=== PATIENT | female | born 1990 | race Caucasian/White ===

== ENCOUNTER 2017-07-15 13:42 | Outpatient (CLI) | payer MEDICAID ==
[2017-07-15 14:38] VITALS: BP 120/74
[2017-07-15] MEDS ORDERED: LACTATED RINGERS 500 ML IV ONE (14:52)
[2017-07-15] MEDS ORDERED: LACTATED RINGERS 1,000 ML ONE (14:57)
[2017-07-15 15:32] LABS: Bacteria,Urine 1+ /HPF (Negative); Bilirubin,Urine NEG (Negative); Blood,Urine NEG (Negative); Ketones,Urine NEG (Negative); Leukocyte Esterase,Urine MOD (Negative); Mucus,Urine 1+ /HPF; Nitrite,Urine NEG (Negative); Protein,Urine <15 mg/dL mg/dL (Negative); Urobilinogen,Urine < 2.0 mg/dL (<2.0)
[2017-07-15] MEDS ORDERED: VISTARIL PO ONE (16:04)
== END 2017-07-15 16:21 | disposition home or self-care (01) ==
LOC: TRG 13:42
PROVIDERS: ATTEND Obstetrics & Gynecology
DX: O47.03 False labor before 37 completed weeks of gestation, third trimester (principal); Z3A.35 35 weeks gestation of pregnancy
CPT/HCPCS: 59025; 81001; 96360; J7120

== ENCOUNTER 2017-07-26 23:55 | Outpatient (CLI) | payer MEDICAID ==
[2017-07-27 00:39] VITALS: BP 112/67
[2017-07-27] MEDS ORDERED: LACTATED RINGERS 500 ML IV ONE (02:15)
[2017-07-27] MEDS ORDERED: VISTARIL PO ONE (02:16)
== END 2017-07-27 02:42 | disposition home or self-care (01) ==
LOC: TRG 23:55
PROVIDERS: ATTEND Obstetrics & Gynecology
DX: O47.03 False labor before 37 completed weeks of gestation, third trimester (principal); Z3A.36 36 weeks gestation of pregnancy
CPT/HCPCS: 59025; J7120; Q0177

== ENCOUNTER 2017-07-28 15:57 | Outpatient (CLI) | payer MEDICAID ==
[2017-07-28 16:36] VITALS: BP 118/68
[2017-07-28] MEDS ORDERED: LACTATED RINGERS 500 ML IV ONE (17:36)
== END 2017-07-28 18:16 | disposition home or self-care (01) ==
LOC: TRG 15:57
PROVIDERS: ATTEND Obstetrics & Gynecology
DX: O47.03 False labor before 37 completed weeks of gestation, third trimester (principal); Z3A.36 36 weeks gestation of pregnancy
CPT/HCPCS: 59025

== ENCOUNTER 2017-07-30 16:43 | Outpatient (CLI) | payer MEDICAID, OTHER ==
[2017-07-30 17:32] VITALS: BP 134/63
== END 2017-07-30 19:23 | disposition home or self-care (01) ==
LOC: TRG 16:43
PROVIDERS: ATTEND Obstetrics & Gynecology
DX: O47.1 False labor at or after 37 completed weeks of gestation (principal); Z3A.37 37 weeks gestation of pregnancy
CPT/HCPCS: 59025

== ENCOUNTER 2017-07-30 20:53 | Inpatient (IN) | payer MEDICAID ==
--- NOTE | 2017-07-30 22:06 | History and Physical Report ---
History of Present Illness Date of examination: 07/30/17 Chief complaint: Contractions History of present illness: 26yo G 2 P 1 0 0 1 here with c/o contractions q2-3 mins. She also reports vaginal bleeding but denies LOF. She was evaluated at the clinic this AM. Cervical exam 3.5cm/50%/-3. She later presented to triage and was 4.5cm/50%/-2, was asked to ambulate and re-examined an hour later with no cervical change. She was sent home on labor precautions but returned to triage an hour and a half later with c/o worsening ctxs q2-3mins. Cervical exam unchanged at 4.5cm/50 %/-2. I consulted Dr. Gamez about 23-hrs OBS and she recommended Ambien 10mg PO x1 for tharapeutic rest. Her is complicated by mild anemia and positive GBS status. Past History Past Medical History: no pertinent history Past Surgical History: no surgical history Family/Genetic History: diabetes (father), hypertension (father) Social history: , lives with family - Obstetrical History Expected Date of Delivery: 08/20/17 Actual Gestation: 37 Week(s) 0 Day(s) : 2 Para: 1 Hx # Term Pregnancies: 1 Spontaneous Abortions: 0 Induced : 0 Number of Living Children: 0 #1 Gender: Male year: 2[age][birth year] Birthweight: 3.714 kg Method of Delivery: Vaginal Gestational age at delivery: 38 Complications: none Medications and Allergies Allergies Allergy/AdvReac Type Severity Reaction Status Date / Time No Known Allergies Allergy Verified 09/20/15 13:34 Home Medications Medication Instructions Recorded Confirmed Last Taken Type Acetaminophen [Tylenol Extra 1,000 mg PO PRN 07/30/17 07/30/17 07/30/17 09:30 History Strength] Review of Systems All systems: negative - Vital Signs Vital signs: Vital Signs Temp Pulse Resp BP Pulse Ox 98.4 F 110 H 20 135/75 99 07/30/17 21:07 07/30/17 21:07 07/30/17 21:07 07/30/17 21:07 07/30/17 21:07 Temp Pulse Resp BP Pulse Ox 98.4 F 101 H 20 135/75 99 07/30/17 21:07 07/30/17 21:26 07/30/17 21:07 07/30/17 21:11 07/30/17 21:26 - Physical Exam Cardiovascular: Regular rate, Normal S1, Normal S2, No murmurs Lungs: Positive: Clear to auscultation, Normal air movement Abdomen: Positive: normal appearance Genitourinary (Female): Positive: normal external genitalia, normal perenium Vulva: both: normal Vagina: Positive: normal moisture, other (bloody show) Uterus: Positive: normal size, normal contour Extremities: Positive: normal Deep Tendon Reflex Grade: Normal +2 - Obstetrical FHR: category 1 FHR comments: baseline 140, moderate variability, 15x15 accels, no decels Uterine Contraction Monitor Mode: External Cervical Dilatation: 4.5 (per RN) Cervical Effacement Percentage: 50 (per RN) station: -2 Uterine Contraction Frequency (min): 2-3 Uterine Contraction Pattern: Regular Results All other labs normal. Assessment and Plan - Patient Problems (1) 37 weeks gestation of Current Visit: Yes Status: Acute (2) False labor Current Visit: Yes Status: Acute Plan to address problem: Admit to L&D for 23-hrs OBS Intermittent electronic monitoring Ambien 10mg PO x1 for therapeutic rest Admit to inpatient status if active labor Anticipate d/c home in AM if no cervical change (3) Group B streptococcal carriage complicating Current Visit: Yes Status: Acute Plan to address problem: Start Ampicillin for GBS prophylaxis if active labor
[2017-07-30] MEDS ORDERED: AMBIEN PO ONE (22:30)
[2017-07-30] MEDS ORDERED: LACTATED RINGERS 1,000 ML ONE (23:26)
[2017-07-30] MEDS: LACTATED RINGERS 1,000 ML IV SCH (23:31)
[2017-07-31] MEDS ORDERED: MORPHINE IM ONE (01:42)
[2017-07-31] MEDS ORDERED: ePHEDrine SULFATE IV PRN (04:23)
[2017-07-31] MEDS ORDERED: XYLOCAINE 2% INFILTRATI ONE (04:23)
[2017-07-31] MEDS ORDERED: POLYCILLIN/NS 2 GM/100 ML 2 GM/100 ML BAG IV ONE (04:23)
[2017-07-31] MEDS ORDERED: MINERAL OIL PO PRN (04:23)
[2017-07-31] MEDS ORDERED: BRETHINE SUB-Q PRN (04:23)
[2017-07-31] MEDS ORDERED: BRETHINE IVP PRN (04:23)
[2017-07-31] MEDS: SUBLIMAZE IV PRN ×2 (04:33→05:31)
[2017-07-31] MEDS: LACTATED RINGERS 1,000 ML IV SCH (04:35)
--- NOTE | 2017-07-31 04:36 | Progress Note ---
Assessment and Plan - Patient Problems (1) 37 weeks gestation of Current Visit: Yes Status: Acute (2) Group B streptococcal carriage complicating Current Visit: Yes Status: Acute Plan to address problem: Start Ampicillin for GBS prophylaxis (3) Active labor at term Current Visit: Yes Status: Acute Plan to address problem: Admit to inpatient status Start routine labor orders May get an epidural for labor pain management Continuous EFM Anticipate vaginal delivery Subjective - Subjective Date of service: 07/31/17 Principal diagnosis: IUP @ 37 wks; Active Labor Interval history: 26yo G 2 P 1 0 0 1 here with c/o contractions q2-3 mins. She also reports vaginal bleeding but denies LOF. She was evaluated at the clinic this AM. Cervical exam 3.5cm/50%/-3. She later presented to triage and was 4.5cm/50%/-2, was asked to ambulate and re-examined an hour later with no cervical change. She was sent home on labor precautions but returned to triage an hour and a half later with c/o worsening ctxs q2-3mins. Cervical exam unchanged at 4.5cm/50 %/-2. I consulted Dr. Gamez about 23-hrs OBS and she recommended Ambien 10mg PO x1 for tharapeutic rest. Her is complicated by mild anemia and positive GBS status. Patient reports: movement normal, contractions (pain level 10/10), other ( no relief after Ambien 10 mg PO x1 and later Morphine 2mg IM x1 for therapeutic rest) Objective - Vital Signs Vital Signs: Vital Signs - 12hr 07/30/17 07/30/17 07/30/17 21:07 21:11 21:16 Temperature 98.4 F Pulse Rate 110 H 108 H 115 H Respiratory 20 Rate Blood Pressure 135/75 Blood Pressure 135/75 [Left] O2 Sat by Pulse 99 99 99 Oximetry 07/30/17 07/30/17 07/30/17 21:21 21:26 22:44 Temperature Pulse Rate 101 H 101 H 99 H Respiratory Rate Blood Pressure 128/74 Blood Pressure [Left] O2 Sat by Pulse 99 99 Oximetry 07/30/17 07/31/17 07/31/17 23:56 03:49 03:54 Temperature 98.3 F Pulse Rate 107 H 97 H Respiratory Rate Blood Pressure Blood Pressure [Left] O2 Sat by Pulse 98 97 Oximetry 07/31/17 07/31/17 07/31/17 03:56 03:59 04:03 Temperature Pulse Rate 97 H 92 H 110 H Respiratory Rate Blood Pressure Blood Pressure [Left] O2 Sat by Pulse 93 96 93 Oximetry 07/31/17 07/31/17 07/31/17 04:04 04:15 04:18 Temperature 98 F Pulse Rate 111 H 115 H 115 H Respiratory 24 Rate Blood Pressure 111/58 Blood Pressure [Left] O2 Sat by Pulse 98 Oximetry - Exam FHR: auscultation normal, category 1 FHR comments: baseline 135, moderate variability, 15x15 accels, no decels Uterine Contraction Monitor Mode: External Cervical Dilatation: 5 Cervical Effacement Percentage: 80 station: -1 Uterine Contraction Frequency (min): 2-3 Uterine Contraction Pattern: Regular (palpate mild) Extremities: normal Deep Tendon Reflex Grade: Normal +2
[2017-07-31 04:56] LABS: Hematocrit 30.4 % (30.3-42.9); Hemoglobin 9.7 gm/dl (10.1-14.3); Mean Corpuscular HGB Conc 32 % (30-34); Mean Corpuscular Volume 76 fl (79-97); Platelet Count 250 K/mm3 (140-440); Red Blood Count 4.01 M/mm3 (3.65-5.03); Red Cell Distribution Width 16.1 % (13.2-15.2)
[2017-07-31] MEDS ORDERED: PITOCin/NS 20 UNIT/1000ML DRIP 20 UNITS/1,000 ML BAG IV SCH (05:00)
[2017-07-31 05:04] LABS: Mean Corpuscular Hemoglobin 24 pg (28-32)
[2017-07-31] MEDS ORDERED: POLYCILLIN/NS 1 GM/50 ML 1 GM/50 ML BAG IV SCH (06:00)
[2017-07-31] MEDS ORDERED: PHENERGAN PR PRN (06:24)
[2017-07-31] MEDS ORDERED: TUCKS PAD TP PRN (06:24)
[2017-07-31] MEDS ORDERED: MILK OF MAGNESIA PO PRN (06:24)
[2017-07-31] MEDS ORDERED: PHENERGAN PO PRN (06:24)
[2017-07-31] MEDS ORDERED: LANSINOH TP PRN (06:24)
[2017-07-31] MEDS ORDERED: TYLENOL PO PRN (06:24)
[2017-07-31] MEDS ORDERED: BENADRYL PO PRN (06:24)
[2017-07-31] MEDS ORDERED: DULCOLAX PR PRN (06:24)
[2017-07-31] MEDS ORDERED: ZOFRAN IV PRN (06:24)
--- NOTE | 2017-07-31 06:33 | Procedure Note ---
OB Delivery Note - Delivery Date of Delivery: 07/31/17 (at 05:35) Surgeon: CARMEN MEDINA Estimated blood loss: 200cc - Vaginal Delivery presentation: vertex Delivery position: OA Intrapartum events: prolonged latent phase Delivery induction: none Delivery monitor: external FHT, external uterine Route of delivery: (at 05:35) Delivery placenta: spontaneous (at 05:46) Delivery cord: nuchal cord (x1; reduced after delivery of baby), 3 umbilical vessels Episiotomy: none Delivery laceration: 1st degree (vaginal midline), other (bilateral periurethral - hemostatic; not repaired) Delivery repair: vicryl (3-0) Anesthesia: local Delivery comments: of a less vigorous term female at 05:35. NICU team in the room. Baby was immediately placed on maternal abdomen, dried & bulb suctioned. Baby became more vigorous. The umbilical cord was double-clamped and cut. Placenta spontaneously delivered at 05:46. Moderate lochia noted. Fundal massage and IV Pitocin bolus initiated. Fundus F/ML/U-2 with light lochia. 1st degree midline vaginal laceration noted. Was repaired using a 3-0 vicryl needle under local anesthesia. Pt tolerated the procedure well. Bilateral periurethral laceration noted. Hemostatic with pressure so not repaired. Placenta intact. Was discarded. Mom and baby in stable condition. - Infant A at 1 minute: 8 at 5 minutes: 9 Gender: Female (7 lbs 14 oz (3579 gm))
[2017-07-31] MEDS: NORCO 5/325 PO PRN (06:52)
[2017-07-31] MEDS ORDERED: SODIUM CHLORIDE FLUSH SYRINGE 10 ML IV NR (07:00)
[2017-07-31] MEDS: FEOSOL PO SCH (09:51)
[2017-07-31] MEDS: PRENATAL VITAMIN PO SCH (09:51)
[2017-07-31] MEDS: MOTRIN PO SCH ×2 (13:22→18:55)
[2017-07-31 22:07] LABS: Hematocrit 28.5 % (30.3-42.9); Hemoglobin 8.8 gm/dl (10.1-14.3)
[2017-08-01] MEDS: MOTRIN PO SCH ×4 (01:30→23:54)
[2017-08-01] MEDS ORDERED: BOOSTRIX IM ONE (06:00)
--- NOTE | 2017-08-01 10:16 | Progress Note ---
Assessment and Plan A: PP Day #1 Asymptomatic Anemia P: Follow Routine Orders Infed 100mg IM x 1 dose Continue FeSO4 325mg PO BID at home Plans Mirena IUD at 6 weeks D/C home in the AM RTO in 6 Weeks Subjective - Subjective Date of service: 08/01/17 Principal diagnosis: IUP @ 37 wks; Active Labor Patient reports: appetite normal, voiding normally, pain well controlled, flatus , ambulating normally [place]: doing well Objective - Vital Signs Latest vital signs: Vital Signs Temp Pulse Resp BP 08/01/17 07:58 98.5 F 91 H 18 107/65 08/01/17 06:05 18 08/01/17 02:30 18 08/01/17 01:30 18 08/01/17 00:48 98.4 F 83 18 112/59 07/31/17 17:00 97.5 F L 105 H 18 115/59 07/31/17 12:15 99 F 112 H 18 116/55 Intake and Output 07/31/17 08/01/17 08/01/17 22:59 06:59 14:59 Intake Total 360 480 240 Balance 360 480 240 Intake: Oral 120 240 Intake, Free Water 240 480 Other: Total, Intake Amount 120 240 # Voids Void 1 2 1 - Exam Breasts: Present: normal Cardiovascular: Present: Regular rate Lungs: Present: Clear to auscultation, Normal air movement Abdomen: Present: normal appearance, soft, normal bowel sounds Uterus: Present: normal, firm, fundal height below umbilicus Extremities: Present: normal - Labs Labs: Abnormal lab results 07/31/17 Range/Units 21:34 Hgb 8.8 L (10.1-14.3) gm/dl Hct 28.5 L (30.3-42.9) %
--- NOTE | 2017-08-01 10:17 | Discharge Summary ---
Providers - Providers Date of Admission: 07/31/17 06:00 Date of discharge: 08/02/17 Attending physician: MARC PRAKASH MD Primary care physician: MARC PRAKASH MD Hospitalization Reason for admission: active labor Delivery: Episiotomy: none Laceration: 1st degree Other procedures: none complications: none Discharge diagnosis: IUP at term delivered [place] baby: female Condition at discharge: Good Disposition: DC-01 TO HOME OR SELFCARE Plan - Provider Discharge Summary Activity: routine, no sex for 6 weeks, no heavy lifting 4 weeks, no strenuous exercise Diet: routine Instructions: routine Additional instructions: [] Smoking cessation referral if applicable(refer to patient education folder for contact #) [] Refer to [facility] Booklet Call your doctor immediately for: * Fever > 100.5 * Heavy vaginal bleeding ( >1 pad per hour) * Severe persistent headache * Shortness of breath * Reddened, hot, painful area to leg or breast * Drainage or odor from incision. * Keep incision clean and dry at all times and follow doctor's instructions regarding bathing/showering - Follow up plan Follow up: MARC PRAKASH MD [Primary Care Provider] - 6 Weeks
[2017-08-01] MEDS ORDERED: INFED IM NR (11:30)
[2017-08-01] MEDS: PRENATAL VITAMIN PO SCH (14:09)
[2017-08-01] MEDS: FEOSOL PO SCH (14:09)
[2017-08-01] MEDS: NORCO 5/325 PO PRN (17:53)
[2017-08-02] MEDS: MOTRIN PO SCH (06:08)
[2017-08-02 08:32] VITALS: BP 109/77
== END 2017-08-02 08:30 | disposition home or self-care (01) | DRG 775 ==
LOC: TRG 20:53 → LD 21:43 → TRG 07-31 04:25 → LD 07-31 06:00 → OB 07-31 09:07
PROVIDERS: ADMIT Obstetrics & Gynecology; ATTEND Obstetrics & Gynecology
PROC: 10E0XZZ Delivery of Products of Conception, External Approach (ICD-10-PCS; principal; 2017-07-31)
PROC: 0HQ9XZZ Repair Perineum Skin, External Approach (ICD-10-PCS; 2017-07-31)
DX: O99.824 Streptococcus B carrier state complicating childbirth (principal); O70.0 First degree perineal laceration during delivery; O99.02 Anemia complicating childbirth; D64.9 Anemia, unspecified; O47.1 False labor at or after 37 completed weeks of gestation; Z3A.37 37 weeks gestation of pregnancy; Z37.0 Single live birth; Z83.3 Family history of diabetes mellitus; Z82.49 Family history of ischemic heart disease and other diseases of the circulatory system; Z79.899 Other long term (current) drug therapy; O69.81X0 Labor and delivery complicated by cord around neck, without compression, not applicable or unspecified
CPT/HCPCS: 36415; 85014; 85018; 85027; 86592; 86850; 86900; 86901; 90471; 90715; 99211; A6250; G0463; J0290; J1750; J2270; J2590; J3010; J7120

== ENCOUNTER 2019-02-21 13:44 | Emergency (ER) | payer SELFPAY ==
[2019-02-21 14:37] VITALS: BP 128/64
--- NOTE | 2019-02-21 14:38 | Emergency Department Report ---
ED ENT HPI - General Chief complaint: Earache Stated complaint: EAR ACHE/NECK PAIN Time Seen by Provider: 02/21/19 14:35 Source: patient Mode of arrival: Ambulatory Limitations: No Limitations - Related Data Home Medications Medication Instructions Recorded Confirmed Last Taken Acetaminophen [Tylenol Extra 1,000 mg PO PRN 07/30/17 07/30/17 07/30/17 09:30 Strength] Previous Rx's Medication Instructions Recorded Last Taken Type Amoxicillin [Amoxicillin TAB] 875 mg PO BID #20 tablet 02/21/19 Unknown Rx Cyclobenzaprine [Flexeril] 10 mg PO TID PRN #15 tablet 02/21/19 Unknown Rx Allergies Allergy/AdvReac Type Severity Reaction Status Date / Time No Known Allergies Allergy Verified 09/20/15 13:34 ED Dental HPI - General Chief complaint: Earache Stated complaint: EAR ACHE/NECK PAIN Time Seen by Provider: 02/21/19 14:35 Source: patient Mode of arrival: Ambulatory Limitations: No Limitations - Related Data Home Medications Medication Instructions Recorded Confirmed Last Taken Acetaminophen [Tylenol Extra 1,000 mg PO PRN 07/30/17 07/30/17 07/30/17 09:30 Strength] Previous Rx's Medication Instructions Recorded Last Taken Type Amoxicillin [Amoxicillin TAB] 875 mg PO BID #20 tablet 02/21/19 Unknown Rx Cyclobenzaprine [Flexeril] 10 mg PO TID PRN #15 tablet 02/21/19 Unknown Rx Allergies Allergy/AdvReac Type Severity Reaction Status Date / Time No Known Allergies Allergy Verified 09/20/15 13:34 ED Review of Systems ROS: Stated complaint: EAR ACHE/NECK PAIN Other details as noted in HPI ED Past Medical Hx - Past Medical History Hx Hypertension: No Hx Congestive Heart Failure: No Hx Diabetes: No Hx Deep Vein Thrombosis: No Hx Renal Disease: No Hx Sickle Cell Disease: No Hx Headaches / Migraines: Yes Hx Seizures: No Hx Asthma: No Hx COPD: No Hx HIV: No - Surgical History Past Surgical History?: No - Social History Smoking Status: Never Smoker - Medications Home Medications: Home Medications Medication Instructions Recorded Confirmed Last Taken Type Acetaminophen [Tylenol Extra 1,000 mg PO PRN 07/30/17 07/30/17 07/30/17 09:30 History Strength] Amoxicillin [Amoxicillin TAB] 875 mg PO BID #20 tablet 02/21/19 Unknown Rx Cyclobenzaprine [Flexeril] 10 mg PO TID PRN #15 tablet 02/21/19 Unknown Rx ED Physical Exam - General Limitations: No Limitations ED Course Vital Signs 02/21/19 14:33 Temperature 98.1 F Pulse Rate 91 H Respiratory 18 Rate Blood Pressure 128/64 O2 Sat by Pulse 99 Oximetry Critical care attestation.: If time is entered above; I have spent that time in minutes in the direct care of this critically ill patient, excluding procedure time. ED Disposition Clinical Impression: Neck pain, acute Pharyngitis, acute Qualifiers: Pharyngitis/tonsillitis etiology: other specified organisms Qualified Code(s): J02.8 - Acute pharyngitis due to other specified organisms Disposition: DC-01 TO HOME OR SELFCARE Is pt being admited?: No Does the pt Need Aspirin: No Condition: Stable Referrals: ALYSIA MATTHEWS MD [Primary Care Provider] - 3-5 Days
== END 2019-02-21 14:50 | disposition home or self-care (01) ==
LOC: ED 13:44
DX: J02.9 Acute pharyngitis, unspecified (principal); M54.2 Cervicalgia; G43.909 Migraine, unspecified, not intractable, without status migrainosus
CPT/HCPCS: 99282

== ENCOUNTER 2020-10-25 21:55 | Emergency (ER) | payer MEDICAID, OTHER ==
[2020-10-25 22:37] LABS: Basophils # (Auto) 0.1 K/mm3 (0.0-0.1); Basophils % (Auto) 0.5 % (0.0-1.8); Eosinophils # (Auto) 0.5 K/mm3 (0.0-0.4); Eosinophils % (Auto) 4.2 % (0.0-4.3); Hematocrit 36.8 % (30.3-42.9); Hemoglobin 12.5 gm/dl (10.1-14.3); Lymphocytes # (Auto) 3.3 K/mm3 (1.2-5.4); Lymphocytes % (Auto) 30.9 % (13.4-35.0); Mean Corpuscular HGB Conc 34 % (30-34); Mean Corpuscular Volume 81 fl (79-97); Monocytes # (Auto) 0.5 K/mm3 (0.0-0.8); Monocytes % (Auto) 4.6 % (0.0-7.3); Platelet Count 240 K/mm3 (140-440); Red Blood Count 4.55 M/mm3 (3.65-5.03); Red Cell Distribution Width 14.6 % (13.2-15.2)
[2020-10-25 22:42] LABS: Bilirubin,Urine NEG (Negative); Blood,Urine NEG (Negative); Color,Urine Yellow (Yellow); Mucus,Urine FEW /HPF; RBC,Urine < 1.0 /HPF (0.0-6.0)
[2020-10-25 22:55] LABS: INR 1.06 (0.87-1.13)
[2020-10-25 23:00] LABS: Alanine Aminotransferase 22 units/L (7-56); Albumin 3.7 g/dL (3.9-5); Blood Urea Nitrogen 10 mg/dL (7-17); Calcium 8.8 mg/dL (8.4-10.2); Hemolysis Index 1
[2020-10-25 23:02] LABS: BUN/Creatinine Ratio 14; Bilirubin,Direct < 0.2 mg/dL (0-0.2)
--- NOTE | 2020-10-26 02:05 | XRay Report ---
ABDOMEN SUPINE AND ERECT INDICATION / CLINICAL INFORMATION: MAIN. COMPARISON: None available. FINDINGS: Bowel gas pattern is unremarkable, not indicative of obstruction. No gross abnormal mass. Unfortunately, the erect view does not include the dome of the diaphragm, so I cannot entirely exclud e a small amount of free air. There are certainly no evidence of extensive free air. Signer Name: Ralph Perez MD Signed: 10/26/2020 12:03 AM Workstation Name: [id number]
--- NOTE | 2020-10-26 03:45 | Cat Scan Report ---
Exam has been dictated earlier this morning. Signer Name: Ralph Perez MD Signed: 10/26/2020 3:41 AM Workstation Name: [id number]
--- NOTE | 2020-10-26 04:10 | Emergency Department Report ---
ED Abdominal Pain HPI - General Chief Complaint: Abdominal Pain Stated Complaint: RT SIDED ABDOMINAL PAIN Time Seen by Provider: 10/26/20 02:55 Source: patient Mode of arrival: Ambulatory Limitations: No Limitations - History of Present Illness Initial Comments: Patient is a 30-year-old female who presents for right lower quadrant pain times 3 weeks that has worsened over the past 3 days with nausea, pain exacerbated by p.o. intake and palpation. Patient states decreased appetite. Nausea without vomiting at this point. There is been no fever or chills. Patient does endorse history of ovarian cyst, and abdominal pain with constipation in past. Last bowel movement was yesterday. Patient states some pain with bowel movement. Last p.o. intake was yesterday. MD Complaint: abdominal pain - Related Data Home Medications Medication Instructions Recorded Confirmed Last Taken Acetaminophen [Tylenol Extra 1,000 mg PO PRN 07/30/17 07/30/17 07/30/17 09:30 Strength] Previous Rx's Medication Instructions Recorded Last Taken Type Amoxicillin [Amoxicillin TAB] 875 mg PO BID #20 tablet 02/21/19 Unknown Rx Cyclobenzaprine [Flexeril] 10 mg PO TID PRN #15 tablet 02/21/19 Unknown Rx Docusate Sodium [Colace] 100 mg PO BID #30 capsule 10/26/20 Unknown Rx polyethylene glycoL 3350 [Miralax 17 gm PO BID PRN #14 packet 10/26/20 Unknown Rx 3350] Allergies Allergy/AdvReac Type Severity Reaction Status Date / Time No Known Allergies Allergy Verified 09/20/15 13:34 ED Review of Systems ROS: Stated complaint: RT SIDED ABDOMINAL PAIN Other details as noted in HPI Constitutional: denies: chills, fever Eyes: denies: eye pain, eye discharge, vision change ENT: denies: ear pain, throat pain Respiratory: denies: cough, shortness of breath, wheezing Cardiovascular: denies: chest pain, palpitations Endocrine: no symptoms reported Gastrointestinal: abdominal pain (RLQ radiates to left upper quad ), vomiting. denies: nausea, diarrhea Genitourinary: denies: urgency, dysuria, frequency, hematuria, discharge, dyspareunia Musculoskeletal: back pain (left flank pain ) Skin: denies: rash, lesions Neurological: denies: headache, weakness, paresthesias Psychiatric: denies: anxiety, depression Hematological/Lymphatic: denies: easy bleeding, easy bruising ED Past Medical Hx - Past Medical History Previous Medical History?: Yes Hx Hypertension: No Hx Congestive Heart Failure: No Hx Diabetes: No Hx Deep Vein Thrombosis: No Hx Renal Disease: No Hx Sickle Cell Disease: No Hx Headaches / Migraines: Yes Hx Seizures: No Hx Asthma: No Hx COPD: No Hx HIV: No - Surgical History Past Surgical History?: No - Social History Smoking Status: Never Smoker - Medications Home Medications: Home Medications Medication Instructions Recorded Confirmed Last Taken Type Acetaminophen [Tylenol Extra 1,000 mg PO PRN 07/30/17 07/30/17 07/30/17 09:30 History Strength] Amoxicillin [Amoxicillin TAB] 875 mg PO BID #20 tablet 02/21/19 Unknown Rx Cyclobenzaprine [Flexeril] 10 mg PO TID PRN #15 tablet 02/21/19 Unknown Rx Docusate Sodium [Colace] 100 mg PO BID #30 capsule 10/26/20 Unknown Rx polyethylene glycoL 3350 [Miralax 17 gm PO BID PRN #14 packet 10/26/20 Unknown Rx 3350] ED Physical Exam - General Limitations: No Limitations General appearance: alert, in no apparent distress - Head Head exam: Present: atraumatic, normocephalic - Eye Eye exam: Present: normal appearance, EOMI Pupils: Present: normal accommodation - ENT ENT exam: Present: mucous membranes moist - Neck Neck exam: Present: normal inspection. Absent: tenderness, full ROM - Respiratory Respiratory exam: Present: normal lung sounds bilaterally. Absent: respiratory distress, wheezes, stridor, chest wall tenderness - Cardiovascular Cardiovascular Exam: Present: regular rate, normal rhythm, normal heart sounds. Absent: systolic murmur, diastolic murmur, rubs, gallop - GI/Abdominal GI/Abdominal exam: Present: tenderness (RUQ, RLQ ), normal bowel sounds. Absent: guarding, rebound, rigid, bruit, hernia - Expanded GI/Abdominal Exam Expanded GI/Abdominal exam: Present: psoas sign, obturator sign, Arizmendi's sign, tenderness at [place]'s Point. Absent: heel tap sign - Rectal Rectal exam: Absent: deferred - Extremities Exam Extremities exam: Present: normal inspection, full ROM. Absent: tenderness - Back Exam Back exam: Present: normal inspection, tenderness, CVA tenderness (L). Absent: full ROM, CVA tenderness (R), muscle spasm, paraspinal tenderness, vertebral tenderness - Neurological Exam Neurological exam: Present: alert, oriented X3, CN II-XII intact, normal gait, reflexes normal. Absent: motor sensory deficit - Expanded Neurological Exam Expanded Patient oriented to: Present: person, place, time Speech: Present: fluid speech Best Eye Response ([place]): (4) open spontaneously Best Motor Response ([place]): (6) obeys commands Best Verbal Response ([place]): (5) oriented Felicitas Total: 15 - Psychiatric Psychiatric exam: Present: normal affect, normal mood - Skin Skin exam: Present: warm, dry, intact, normal color. Absent: rash ED Course Vital Signs 10/25/20 22:02 Temperature 98.4 F Pulse Rate 88 Respiratory 17 Rate Blood Pressure 122/76 O2 Sat by Pulse 96 Oximetry ED Medical Decision Making - Lab Data Result diagrams: 10/25/20 22:19 10/25/20 22:19 Labs 10/25/20 10/25/20 10/25/20 22:19 22:19 22:19 WBC 10.7 RBC 4.55 Hgb 12.5 Hct 36.8 MCV 81 MCH 27 L MCHC 34 RDW 14.6 Plt Count 240 Lymph % (Auto) 30.9 [place] % (Auto) 4.6 Eos % (Auto) 4.2 Baso % (Auto) 0.5 Lymph # (Auto) 3.3 [place] # (Auto) 0.5 Eos # (Auto) 0.5 H Baso # (Auto) 0.1 Seg Neutrophils % 59.8 Seg Neutrophils # 6.4 PT 13.7 INR 1.06 Sodium 138 Potassium 3.6 Chloride 103.9 Carbon Dioxide 27 Anion Gap 11 BUN 10 Creatinine 0.7 Estimated GFR > 60 BUN/Creatinine Ratio 14 Glucose 120 H Calcium 8.8 Total Bilirubin 0.30 Direct Bilirubin < 0.2 Indirect Bilirubin 0.1 AST 17 ALT 22 Alkaline Phosphatase 86 Total Protein 6.6 Albumin 3.7 L Albumin/Globulin Ratio 1.3 Amylase 39 Lipase 19 HCG, Qual Urine Color Urine Turbidity Urine pH Ur Specific [place] Urine Protein Urine Glucose (UA) Urine Ketones Urine Blood Urine Nitrite Urine Bilirubin Urine Urobilinogen Ur Leukocyte Esterase Urine WBC (Auto) Urine RBC (Auto) U Epithel Cells (Auto) Urine Mucus 10/25/20 10/25/20 22:19 22:26 WBC RBC Hgb Hct MCV MCH MCHC RDW Plt Count Lymph % (Auto) [place] % (Auto) Eos % (Auto) Baso % (Auto) Lymph # (Auto) [place] # (Auto) Eos # (Auto) Baso # (Auto) Seg Neutrophils % Seg Neutrophils # PT INR Sodium Potassium Chloride Carbon Dioxide Anion Gap BUN Creatinine Estimated GFR BUN/Creatinine Ratio Glucose Calcium Total Bilirubin Direct Bilirubin Indirect Bilirubin AST ALT Alkaline Phosphatase Total Protein Albumin Albumin/Globulin Ratio Amylase Lipase HCG, Qual Negative Urine Color Yellow Urine Turbidity Clear Urine pH 6.0 Ur Specific [place] 1.029 Urine Protein 30 mg/dl Urine Glucose (UA) Neg Urine Ketones Neg Urine Blood Neg Urine Nitrite Neg Urine Bilirubin Neg Urine Urobilinogen 2.0 Ur Leukocyte Esterase Tr Urine WBC (Auto) 3.0 Urine RBC (Auto) < 1.0 U Epithel Cells (Auto) 1.0 Urine Mucus Few - Radiology Data Radiology results: report reviewed, image reviewed Ordering Physician: ED MD ERNESTINA Date of Service: 10/25/20 Procedure(s): XR abdomen 2V Accession Number(s): [id number] cc: ED DOCMD Fluoro Time In Minutes: ABDOMEN SUPINE AND ERECT INDICATION / CLINICAL INFORMATION: MAIN. COMPARISON: None available. FINDINGS: Bowel gas pattern is unremarkable, not indicative of obstruction. No gross abnormal mass. Unfortunately, the erect view does not include the dome of the diaphragm, so I cannot entirely exclude a small amount of free air. There are certainly no evidence of extensive free air. Signer Name: Ralph Perez MD Signed: 10/26/2020 12:03 AM Workstation Name: [id number] Transcribed By: TM Dictated By: Ralph Perez MD Electronically Authenticated By: Ralph Perez MD Signed Date/Time: 10/26/20 0003 DD/ 0002 TD/TT: - Medical Decision Making labs normal. HCG negative. CT abdomen and pelvis normal no mass no bleed no soft tissue abnormality. Plan stool softener, laxative of choice, NSAIDs as needed pain discharged home. Patient will continue to hydrate as directed. Patient will follow-up with PCP in 2 to 3 days. Patient verbalized agreement and understanding with same patient DC'd home in stable condition at this time. Critical care attestation.: If time is entered above; I have spent that time in minutes in the direct care of this critically ill patient, excluding procedure time. ED Disposition Clinical Impression: Abdominal pain Qualifiers: Abdominal location: right lower quadrant Qualified Code(s): R10.31 - Right lower quadrant pain Constipation Qualifiers: Constipation type: unspecified constipation type Qualified Code(s): K59.00 - Constipation, unspecified Disposition: TO HOME OR SELFCARE Is pt being admited?: No Does the pt Need Aspirin: No Condition: Stable Instructions: Abdominal Pain (ED), Constipation, Adult, Abdominal Pain, Adult Additional Instructions: hydrate drink 1 gallon of water daily for next 3 days, follow up with primary care doctor , take medications as prescribed. Prescriptions: Docusate Sodium [Colace] 100 mg PO BID #30 capsule polyethylene glycoL 3350 [Miralax 3350] 17 gm PO BID PRN #14 packet PRN Reason: Constipation Referrals: ALYSIA BLANCO MD [Staff Physician] - 3-5 Days Forms: Work/School Release Form(ED) Time of Disposition: 04:23
[2020-10-26 04:35] VITALS: BP 118/69
== END 2020-10-26 04:29 | disposition home or self-care (01) ==
LOC: ED 21:55
DX: K59.00 Constipation, unspecified (principal); R10.31 Right lower quadrant pain; G43.909 Migraine, unspecified, not intractable, without status migrainosus; Z79.2 Long term (current) use of antibiotics; Z79.899 Other long term (current) drug therapy
CPT/HCPCS: 36415; 74019; 74177; 80048; 80076; 81001; 82150; 83690; 84703; 85025; 85610; 99284; Q9967

== ENCOUNTER 2021-01-27 20:09 | Emergency (ER) | payer MEDICAID, OTHER ==
[2021-01-27 23:19] LABS: Basophils % (Auto) 0.2 % (0.0-1.8); Eosinophils # (Auto) 0.3 K/mm3 (0.0-0.4); Eosinophils % (Auto) 3.1 % (0.0-4.3); Hematocrit 34.9 % (30.3-42.9); Hemoglobin 11.8 gm/dl (10.1-14.3); Lymphocytes # (Auto) 2.4 K/mm3 (1.2-5.4); Mean Corpuscular HGB Conc 34 % (30-34); Mean Corpuscular Volume 82 fl (79-97); Monocytes # (Auto) 0.5 K/mm3 (0.0-0.8); Monocytes % (Auto) 5.3 % (0.0-7.3); Platelet Count 218 K/mm3 (140-440); Red Blood Count 4.26 M/mm3 (3.65-5.03); Red Cell Distribution Width 13.3 % (13.2-15.2)
[2021-01-27] MEDS ORDERED: FAMOTIDINE 20 MG/2 ML INJ IV ONE (23:40)
[2021-01-27 23:43] LABS: Alanine Aminotransferase 9 units/L (7-56); Albumin 3.4 g/dL (3.9-5); Blood Urea Nitrogen 10 mg/dL (7-17); Hemolysis Index 4
[2021-01-27 23:45] LABS: BUN/Creatinine Ratio 20
--- NOTE | 2021-01-27 23:46 | Emergency Department Report ---
ED HPI - General Chief complaint: Nausea/Vomiting/Diarrhea Stated complaint: NAUSEA/VOMITING/STOMACH PAIN Time Seen by Provider: 01/27/21 23:02 Source: patient Mode of arrival: Ambulatory Limitations: No Limitations - History of Present Illness Initial comments: 30-year-old female presents with continued nausea and vomiting throughout the duration of her today and 3 days of lower abdominal pain. She states she was referred here by her SERVICE ORDER DISPATCHER CHIEF, [employer], for fluids for dehydration. She denies any hematemesis/coffee-ground emesis, stool changes, or urinary symptoms. No vaginal discharge, vaginal bleeding, or dyspareunia per patient. She rates her abdominal pain is 6/10 in severity. She is G3, . She also denies any fever/chills/sweats, chest pain, or shortness of breath. Patient states she is currently taking Zofran and Phenergan home as needed for nausea, however these are not working. She is also on Pepcid. - Related Data Home Medications Medication Instructions Recorded Confirmed Last Taken Acetaminophen [Tylenol Extra 1,000 mg PO PRN 07/30/17 07/30/17 07/30/17 09:30 Strength] Previous Rx's Medication Instructions Recorded Last Taken Type Amoxicillin [Amoxicillin TAB] 875 mg PO BID #20 tablet 02/21/19 Unknown Rx Cyclobenzaprine [Flexeril] 10 mg PO TID PRN #15 tablet 02/21/19 Unknown Rx Docusate Sodium [Colace] 100 mg PO BID #30 capsule 10/26/20 Unknown Rx polyethylene glycoL 3350 [Miralax 17 gm PO BID PRN #14 packet 10/26/20 Unknown Rx 3350] Acetaminophen/Codeine [Tylenol 1 tab PO QHS PRN #3 tablet 01/28/21 Unknown Rx /Codeine # 3 tab] Metoclopramide [Reglan] 10 mg PO TID PRN #30 tab 01/28/21 Unknown Rx diphenhydrAMINE [Benadryl CAP] 25 mg PO Q8HR PRN #30 capsule 01/28/21 Unknown Rx Allergies Allergy/AdvReac Type Severity Reaction Status Date / Time No Known Allergies Allergy Verified 09/20/15 13:34 ED Review of Systems ROS: Stated complaint: NAUSEA/VOMITING/STOMACH PAIN Other details as noted in HPI Constitutional: denies: chills, diaphoresis, fever, malaise, weakness Respiratory: denies: cough, shortness of breath Cardiovascular: denies: chest pain Gastrointestinal: abdominal pain, nausea, vomiting. denies: diarrhea, constipation, hematemesis, melena, hematochezia Genitourinary: denies: urgency, dysuria, frequency, hematuria, discharge, abnormal menses, dyspareunia Skin: denies: change in color Neurological: denies: headache ED Past Medical Hx - Past Medical History Hx Hypertension: No Hx Congestive Heart Failure: No Hx Diabetes: No Hx Deep Vein Thrombosis: No Hx Renal Disease: No Hx Sickle Cell Disease: No Hx Headaches / Migraines: Yes Hx Seizures: No Hx Asthma: No Hx COPD: No Hx HIV: No - Surgical History Past Surgical History?: No - Social History Smoking Status: Never Smoker Substance Use Type: None - Medications Home Medications: Home Medications Medication Instructions Recorded Confirmed Last Taken Type Acetaminophen [Tylenol Extra 1,000 mg PO PRN 07/30/17 07/30/17 07/30/17 09:30 History Strength] Amoxicillin [Amoxicillin TAB] 875 mg PO BID #20 tablet 02/21/19 Unknown Rx Cyclobenzaprine [Flexeril] 10 mg PO TID PRN #15 tablet 02/21/19 Unknown Rx Docusate Sodium [Colace] 100 mg PO BID #30 capsule 10/26/20 Unknown Rx polyethylene glycoL 3350 [Miralax 17 gm PO BID PRN #14 packet 10/26/20 Unknown Rx 3350] Acetaminophen/Codeine [Tylenol 1 tab PO QHS PRN #3 tablet 01/28/21 Unknown Rx /Codeine # 3 tab] Metoclopramide [Reglan] 10 mg PO TID PRN #30 tab 01/28/21 Unknown Rx diphenhydrAMINE [Benadryl CAP] 25 mg PO Q8HR PRN #30 capsule 01/28/21 Unknown Rx ED Physical Exam - General Limitations: No Limitations General appearance: alert, in no apparent distress, obese - Head Head exam: Present: atraumatic, normocephalic - Eye Eye exam: Present: normal appearance. Absent: scleral icterus - Respiratory Respiratory exam: Absent: respiratory distress - Cardiovascular Cardiovascular Exam: Present: regular rate - GI/Abdominal GI/Abdominal exam: Present: soft, tenderness (Suprapubic), normal bowel sounds. Absent: distended, guarding, rebound, rigid - Neurological Exam Neurological exam: Present: alert, oriented X3 - Psychiatric Psychiatric exam: Present: normal affect, normal mood - Skin Skin exam: Present: warm, dry, intact, normal color. Absent: rash, cyanosis, diaphoretic, pallor ED Course Vital Signs 01/27/21 21:13 Temperature 98.7 F Pulse Rate 79 Respiratory 18 Rate Blood Pressure 114/68 O2 Sat by Pulse 100 Oximetry ED Medical Decision Making - Lab Data Result diagrams: 01/27/21 23:11 01/27/21 23:11 Lab Results 01/27/21 01/27/21 01/27/21 Range/Units 23:11 23:11 23:11 WBC 10.2 (4.5-11.0) K/mm3 RBC 4.26 (3.65-5.03) M/mm3 Hgb 11.8 (10.1-14.3) gm/dl Hct 34.9 (30.3-42.9) % MCV 82 (79-97) fl MCH 28 (28-32) pg MCHC 34 (30-34) % RDW 13.3 (13.2-15.2) % Plt Count 218 (140-440) K/mm3 Lymph % (Auto) 23.0 (13.4-35.0) % [place] % (Auto) 5.3 (0.0-7.3) % Eos % (Auto) 3.1 (0.0-4.3) % Baso % (Auto) 0.2 (0.0-1.8) % Lymph # (Auto) 2.4 (1.2-5.4) K/mm3 [place] # (Auto) 0.5 (0.0-0.8) K/mm3 Eos # (Auto) 0.3 (0.0-0.4) K/mm3 Baso # (Auto) 0.0 (0.0-0.1) K/mm3 Seg Neutrophils % 68.4 (40.0-70.0) % Seg Neutrophils # 7.0 (1.8-7.7) K/mm3 Sodium 134 L (137-145) mmol/L Potassium 3.6 (3.6-5.0) mmol/L Chloride 102.3 (98-107) mmol/L Carbon Dioxide 21 L (22-30) mmol/L Anion Gap 14 mmol/L BUN 10 (7-17) mg/dL Creatinine 0.5 L (0.6-1.2) mg/dL Estimated GFR > 60 ml/min BUN/Creatinine Ratio 20 % Glucose 126 H (65-100) mg/dL Calcium 9.0 (8.4-10.2) mg/dL Total Bilirubin 0.20 (0.1-1.2) mg/dL AST 9 (5-40) units/L ALT 9 (7-56) units/L Alkaline Phosphatase 71 (35-129) units/L Total Protein 6.4 (6.3-8.2) g/dL Albumin 3.4 L (3.9-5) g/dL Albumin/Globulin Ratio 1.1 % HCG, Quant 68058 H (0-4) mIU/mL Urine Color (Yellow) Urine Turbidity (Clear) Urine pH (5.0-7.0) Ur Specific [place] (1.003-1.030) Urine Protein (Negative) mg/dL Urine Glucose (UA) (Negative) mg/dL Urine Ketones (Negative) mg/dL Urine Blood (Negative) Urine Nitrite (Negative) Urine Bilirubin (Negative) Urine Urobilinogen (<2.0) mg/dL Ur Leukocyte Esterase (Negative) Urine WBC (Auto) (0.0-6.0) /HPF Urine RBC (Auto) (0.0-6.0) /HPF U Epithel Cells (Auto) (0-13.0) /HPF Urine Bacteria (Auto) (Negative) /HPF Urine Mucus /HPF 01/28/21 Range/Units Unknown WBC (4.5-11.0) K/mm3 RBC (3.65-5.03) M/mm3 Hgb (10.1-14.3) gm/dl Hct (30.3-42.9) % MCV (79-97) fl MCH (28-32) pg MCHC (30-34) % RDW (13.2-15.2) % Plt Count (140-440) K/mm3 Lymph % (Auto) (13.4-35.0) % [place] % (Auto) (0.0-7.3) % Eos % (Auto) (0.0-4.3) % Baso % (Auto) (0.0-1.8) % Lymph # (Auto) (1.2-5.4) K/mm3 [place] # (Auto) (0.0-0.8) K/mm3 Eos # (Auto) (0.0-0.4) K/mm3 Baso # (Auto) (0.0-0.1) K/mm3 Seg Neutrophils % (40.0-70.0) % Seg Neutrophils # (1.8-7.7) K/mm3 Sodium (137-145) mmol/L Potassium (3.6-5.0) mmol/L Chloride (98-107) mmol/L Carbon Dioxide (22-30) mmol/L Anion Gap mmol/L BUN (7-17) mg/dL Creatinine (0.6-1.2) mg/dL Estimated GFR ml/min BUN/Creatinine Ratio % Glucose (65-100) mg/dL Calcium (8.4-10.2) mg/dL Total Bilirubin (0.1-1.2) mg/dL AST (5-40) units/L ALT (7-56) units/L Alkaline Phosphatase (35-129) units/L Total Protein (6.3-8.2) g/dL Albumin (3.9-5) g/dL Albumin/Globulin Ratio % HCG, Quant (0-4) mIU/mL Urine Color Yellow (Yellow) Urine Turbidity Slightly-cloudy (Clear) Urine pH 5.0 (5.0-7.0) Ur Specific [place] 1.010 (1.003-1.030) Urine Protein <15 mg/dl (Negative) mg/dL Urine Glucose (UA) Neg (Negative) mg/dL Urine Ketones Neg (Negative) mg/dL Urine Blood Neg (Negative) Urine Nitrite Neg (Negative) Urine Bilirubin Neg (Negative) Urine Urobilinogen < 2.0 (<2.0) mg/dL Ur Leukocyte Esterase Mod (Negative) Urine WBC (Auto) 5.0 (0.0-6.0) /HPF Urine RBC (Auto) 3.0 (0.0-6.0) /HPF U Epithel Cells (Auto) 7.0 (0-13.0) /HPF Urine Bacteria (Auto) 1+ (Negative) /HPF Urine Mucus Few /HPF - Radiology Data Radiology results: report reviewed The ultrasound INDICATION: Pelvic pain FINDINGS: Single live intrauterine . Gestational sac measures 71 mm measuring 13 weeks 5 days. [place]-rump length 54.2 mm measuring 12 weeks 0 days. pole appears normal. Body and limb movements. No free fluid is identified. There is a moderate amount of subchorionic hemorrhage. heart rate is 1 65 bpm. Right ovary is not visualized. Left ovary measures 3.1 x 2.3 x 2.8 cm with a cystic area measuring 1.8 x 1.1 x 1.6 cm. Uterus measures 13.4 x 9.2 x 8.2 cm. IMPRESSION: 1. Single live intrauterine . Moderate subchorionic bleed/vascularity suggested. heart rate appears normal measuring 1 65 bpm. - Medical Decision Making 30-year-old female presents with continued nausea and vomiting throughout the duration of her today and 3 days of lower abdominal pain. She states she was referred here by her [employer]ICE ORDER DISPATCHER CHIEF, [employer], for fluids for dehydration. She denies any hematemesis/coffee-ground emesis, stool changes, or urinary symptoms. No vaginal discharge, vaginal bleeding, or dyspareunia per patient. She rates her abdominal pain is 6/10 in severity. She is G3, . She also denies any fever/chills/sweats, chest pain, or shortness of breath. Patient states she is currently taking Zofran and Phenergan home as needed for nausea, however these are not working. She is also on Pepcid. No significant abnormalities noted on CBC. Anion gap noted to be 14 on CMP. UA is negative for UTI. Ultrasound shows a moderate subchorionic hemorrhage. Patient continues to deny vaginal bleeding. She is now tolerating fluids p.o. Her vitals are normal, she is nontoxic-appearing, she is stable for discharge home. Discussed activity restriction until follow-up with SERVICE ORDER DISPATCHER CHIEF within 3 days. She is stable for discharge home. Strict return precautions were discussed in detail with patient who verbalized understanding. Critical care attestation.: If time is entered above; I have spent that time in minutes in the direct care of this critically ill patient, excluding procedure time. ED Disposition Clinical Impression: Hyperemesis gravidarum, Subchorionic hematoma in second trimester Disposition: DC- TO HOME OR SELFCARE Is pt being admited?: No Condition: Stable Instructions: Hyperemesis Gravidarum, Activity Restriction During , Subchorionic Hematoma Additional Instructions: Please follow-up with your SERVICE ORDER DISPATCHER CHIEF on Saturday01/30/2021 Prescriptions: Acetaminophen/Codeine [Tylenol /Codeine # 3 tab] 1 tab PO QHS PRN #3 tablet PRN Reason: Pain , Severe (7-10) diphenhydrAMINE [Benadryl CAP] 25 mg PO Q8HR PRN #30 capsule PRN Reason: Nausea Metoclopramide [Reglan] 10 mg PO TID PRN #30 tab PRN Reason: Nausea
[2021-01-27] MEDS ORDERED: METOCLOPRAMIDE 10 MG/2 ML INJ IV ONE (23:58)
[2021-01-27] MEDS ORDERED: diphenhydrAMINE 50 MG/ML VIAL IV ONE (23:58)
[2021-01-27] MEDS ORDERED: LACTATED RINGERS 1,000 ML IV ONE (23:58)
[2021-01-28 01:06] LABS: Bacteria,Urine 1+ /HPF (Negative); Bilirubin,Urine NEG (Negative); Blood,Urine NEG (Negative); Color,Urine Yellow (Yellow); Mucus,Urine FEW /HPF; Protein,Urine <15 mg/dL mg/dL (Negative); Urobilinogen,Urine < 2.0 mg/dL (<2.0)
[2021-01-28 02:43] VITALS: BP 111/53
== END 2021-01-28 02:35 | disposition home or self-care (01) ==
LOC: ED 20:09
DX: O21.0 Mild hyperemesis gravidarum (principal); O20.8 Other hemorrhage in early pregnancy; G43.909 Migraine, unspecified, not intractable, without status migrainosus; Z3A.13 13 weeks gestation of pregnancy; Z79.2 Long term (current) use of antibiotics; Z79.899 Other long term (current) drug therapy
CPT/HCPCS: 36415; 76801; 80053; 81001; 84702; 85025; 96361; 96374; 96375; 99284; J1200; J2765; J7120

== ENCOUNTER 2021-03-23 21:53 | Outpatient (CLI) | payer OTHER ==
[2021-03-23 22:19] VITALS: BP 136/74
[2021-03-23 23:01] LABS: Bacteria,Urine 1+ /HPF (Negative); Bilirubin,Urine NEG (Negative); Blood,Urine NEG (Negative); Color,Urine Yellow (Yellow); Mucus,Urine FEW /HPF; Protein,Urine <15 mg/dL mg/dL (Negative); Urobilinogen,Urine < 2.0 mg/dL (<2.0)
[2021-03-24] MEDS ORDERED: LIDOCAINE-MPF (1%) 10 MG/1 ML VIAL 5 ML INFILTRATI ONE (00:31)
--- NOTE | 2021-03-24 00:51 | Ultrasound Report ---
ULTRASOUND OBSTETRIC Indication: ABDOMINAL PAIN Findings: There is a single intrauterine . BPD = 4.4 cm = 19 weeks, 1 day(s). Head circumference = 17 cm = 19 weeks, 4 day(s). Abdominal circumference = 15 cm = 20 weeks, 4 day(s). Femur length = 3.5 cm = 20 weeks, 6 day(s). Overall estimated sonographic age = 20 weeks, 0 day(s). heart rate is 158 beats per minute. Estimated weight is 363 grams position is breech. Cervix appears closed. Measuring 3.82 cm movement is present. Placenta is left lateral and grade 0 . Amniotic fluid volume appears normal. Maternal adnexa appear normal. Impression: 1. Single living intrauterine with estimated sonographic age of 20 weeks, 0 day(s). 2. No sonographic abnormality identified. Signer Name: Rodolfo Alberto MD Signed: 03/24/2021 12:47 AM Workstation Name: [id number]
== END 2021-03-24 01:12 | disposition home or self-care (01) ==
LOC: TRG 21:53 → APU 21:55 → TRG 03-24 01:12
PROVIDERS: ATTEND Obstetrics & Gynecology
DX: O26.892 Other specified pregnancy related conditions, second trimester (principal); R10.9 Unspecified abdominal pain; Z3A.20 20 weeks gestation of pregnancy
CPT/HCPCS: 76816; 81001; 96372; J0696

== ENCOUNTER 2021-05-04 19:38 | Outpatient (CLI) | payer OTHER ==
[2021-05-04 20:27] VITALS: BP 128/66
[2021-05-04] MEDS ORDERED: LACTATED RINGERS 1,000 ML IV ONE (20:40)
[2021-05-04 21:05] LABS: Bilirubin,Urine NEG (Negative); Blood,Urine NEG (Negative); Color,Urine Straw (Yellow); Hyaline Casts,Urine 1 /LPF; Mucus,Urine FEW /HPF; Protein,Urine <15 mg/dL mg/dL (Negative); Urobilinogen,Urine < 2.0 mg/dL (<2.0)
== END 2021-05-04 22:05 | disposition home or self-care (01) ==
LOC: TRG 19:38 → APU 20:03 → TRG 22:05
PROVIDERS: ATTEND Obstetrics & Gynecology
DX: Z34.92 Encounter for supervision of normal pregnancy, unspecified, second trimester (principal); Z3A.26 26 weeks gestation of pregnancy
CPT/HCPCS: 59025; 81001

== ENCOUNTER 2021-07-18 00:04 | Outpatient (CLI) | payer OTHER | END 2021-07-18 03:00 | disposition home or self-care (01) | LOC: TRG 00:04 → APU 00:05 → TRG 03:00 | PROVIDERS: ATTEND Obstetrics & Gynecology Gynecology | DX: Z34.93 Encounter for supervision of normal pregnancy, unspecified, third trimester (principal); Z3A.36 36 weeks gestation of pregnancy | CPT/HCPCS: 59025; Q0177 ==

== ENCOUNTER 2021-11-23 08:15 | Emergency (ER) | payer OTHER ==
[2021-11-23] MEDS ORDERED: ACETAMINOPHEN 325 MG TAB PO ONE (10:29)
--- NOTE | 2021-11-23 10:30 | Emergency Department Report ---
ED Female HPI - General Chief complaint: Vaginal Bleeding Stated complaint: VAGINAL HEAVY BLEEDING/LIGHT HEADED Time Seen by Provider: 11/23/21 10:13 Source: patient Mode of arrival: Ambulatory Limitations: No Limitations - History of Present Illness Initial comments: 31-year-old female presents to the ER today with complaints of abnormal vaginal bleeding. Patient states that she started her regular menstrual cycle November 05 but she states that she has continued to bleed and since then in the past 4 days the bleeding got significantly worse. She states that she has been changing over to 3 pads per day in the past 4 days and yesterday started passing clots. Patient states that she had a baby 3 months ago and after having the baby she bled for 2 weeks and then had an bleed for 2 months. She is not currently on any control. She reports generalized muscle and joint cramping but no significant abdominal pain and she states that she has been feeling lightheaded. She denies any syncope, UTI symptoms, abdominal vaginal discharge, nausea, vomiting or any additional symptoms. She states that she did call her PT [facility] to set up an appointment but is not until end of next week. She is G3, P3 Ab0 Complaint: vaginal bleeding -: week(s) (since november 05) - Related Data Previous Rx's Medication Instructions Recorded Last Taken Type polyethylene glycoL 3350 [Miralax 17 gm PO BID PRN #14 packet 10/26/20 Unknown Rx 3350] medroxyPROGESTERone ACETATE 10 mg PO DAILY #10 11/23/21 Unknown Rx [Provera] Allergies Allergy/AdvReac Type Severity Reaction Status Date / Time No Known Allergies Allergy Verified 09/20/15 13:34 ED Review of Systems ROS: Stated complaint: VAGINAL HEAVY BLEEDING/LIGHT HEADED Other details as noted in HPI Comment: All other systems reviewed and negative Constitutional: denies: chills, fever Eyes: denies: eye pain, eye discharge, vision change ENT: denies: ear pain, throat pain Respiratory: denies: cough, shortness of breath, wheezing Cardiovascular: denies: chest pain, palpitations Gastrointestinal: denies: abdominal pain, nausea, vomiting, diarrhea, constipation, hematemesis, melena, hematochezia Genitourinary: abnormal menses. denies: urgency, dysuria, frequency, hematuria, discharge, dyspareunia Musculoskeletal: arthralgia, myalgia Skin: denies: rash, lesions Neurological: other (Lightheaded). denies: headache, weakness, numbness, paresthesias, confusion Psychiatric: denies: anxiety, depression, auditory hallucinations, visual hallucinations, homicidal thoughts, suicidal thoughts Hematological/Lymphatic: denies: easy bleeding, easy bruising, swollen glands ED Past Medical Hx - Past Medical History Hx Hypertension: No Hx Congestive Heart Failure: No Hx Diabetes: No Hx Deep Vein Thrombosis: No Hx Liver Disease: No Hx Renal Disease: No Hx Sickle Cell Disease: No Hx Headaches / Migraines: Yes Hx Seizures: No Hx Asthma: No Hx COPD: No Hx HIV: No - Surgical History Past Surgical History?: No - Social History Smoking Status: Never Smoker Substance Use Type: None - Medications Home Medications: Home Medications Medication Instructions Recorded Confirmed Last Taken Type polyethylene glycoL 3350 [Miralax 17 gm PO BID PRN #14 packet 10/26/20 07/18/21 Unknown Rx 3350] medroxyPROGESTERone ACETATE 10 mg PO DAILY #10 11/23/21 Unknown Rx [Provera] ED Physical Exam - General Limitations: No Limitations General appearance: alert, in no apparent distress - Head Head exam: Present: atraumatic, normocephalic, normal inspection - Eye Eye exam: Present: normal appearance, PERRL, EOMI Pupils: Present: normal accommodation - Neck Neck exam: Present: normal inspection, full ROM. Absent: meningismus - Respiratory Respiratory exam: Absent: respiratory distress - Cardiovascular Cardiovascular Exam: Present: regular rate, normal heart sounds - GI/Abdominal GI/Abdominal exam: Present: soft. Absent: distended, tenderness, guarding, rebound - Neurological Exam Neurological exam: Present: alert, oriented X3, CN II-XII intact, normal gait - Psychiatric Psychiatric exam: Present: normal affect, normal mood - Skin Skin exam: Present: intact ED Course Vital Signs 11/23/21 11/23/21 08:27 08:35 Temperature 97.8 F 97.8 F Pulse Rate 74 80 Respiratory 18 18 Rate Blood Pressure 137/58 Blood Pressure 137/58 [Right] O2 Sat by Pulse 96 99 Oximetry ED Medical Decision Making - Lab Data Result diagrams: 11/23/21 11:46 11/23/21 11:46 Laboratory Tests 11/23/21 11/23/21 11/23/21 10:51 11:46 11:46 WBC 5.5 RBC 4.38 Hgb 10.4 Hct 31.7 MCV 72 L MCH 24 L MCHC 33 RDW 15.0 Plt Count 293 Lymph % (Auto) 39.0 H [place] % (Auto) 4.6 Eos % (Auto) 6.3 H Baso % (Auto) 0.5 Lymph # (Auto) 2.2 [place] # (Auto) 0.3 Eos # (Auto) 0.3 Baso # (Auto) 0.0 Seg Neutrophils % 49.6 Seg Neutrophils # 2.7 Sodium 140 Potassium 4.2 Chloride 107.2 H Carbon Dioxide 22 Anion Gap 15 BUN 6 L Glucose 104 H Calcium 9.2 Total Bilirubin 0.30 AST 13 ALT 13 Alkaline Phosphatase 118 Total Protein 6.8 Albumin 3.9 Albumin/Globulin Ratio 1.3 Urine HCG, Qual Negative - Medical Decision Making 31-year-old female presents to the ER today with complaints of abnormal vaginal bleeding. Patient states that she started her regular menstrual cycle November 05 but she states that she has continued to bleed and since then in the past 4 days the bleeding got significantly worse. She states that she has been changing over to 3 pads per day in the past 4 days and yesterday started passing clots. Patient states that she had a baby 3 months ago and after having the baby she bled for 2 weeks and then had an bleed for 2 months. She is not currently on any control. She reports generalized muscle and joint cramping but no significant abdominal pain and she states that she has been feeling lightheaded. She denies any syncope, UTI symptoms, abdominal vaginal discharge, nausea, vomiting or any additional symptoms. She states that she did call her PT [facility] to set up an appointment but is not until end of next week. She is G3, P3 Ab0. 1244: All labs reviewed and showed no significant abnormality. H&H is normal. And her test is negative. Patient is currently resting comfortably in the bed on her phone. She is not toxic or ill-appearing and not in any significant distress. She is awake alert and oriented x3 with no focal neurological deficits on exam. She has a soft nontender abdomen. Her gait is normal. Her vital signs are stable. She is hemodynamically stable. Discussed lab results with patient. We will do a trial of progesterone for 10 days (she does not smoke and has not had history of DVT or PE) to see if it will help her bleeding. The patient was informed that she needs to keep her appointment with her PT [facility]. She expressed understanding agree with plan. Patient was stable at time of discharge. Critical care attestation.: If time is entered above; I have spent that time in minutes in the direct care of this critically ill patient, excluding procedure time. ED Disposition Clinical Impression: Dysfunctional uterine bleeding Disposition: HOME / SELF CARE / HOMELESS Is pt being admited?: No Does the pt Need Aspirin: No Condition: Stable Instructions: Abnormal Uterine Bleeding Additional Instructions: Take the provera as prescribed. You can take ibuprofen or tylenol for pain. Keep your appointment with OBGYN. Return to ED if worse. Prescriptions: medroxyPROGESTERone ACETATE [Provera] 10 mg PO DAILY #10 Referrals: JACOB CHAVARRIA MD [Primary Care Provider] - 3-5 Days Forms: Work/School Release Form(ED) Time of Disposition: 12:26
[2021-11-23 11:52] LABS: HCG Qualitative,Urine Negative (Negative)
[2021-11-23 12:19] LABS: Basophils % (Auto) 0.5 % (0.0-1.8); Eosinophils # (Auto) 0.3 K/mm3 (0.0-0.4); Eosinophils % (Auto) 6.3 % (0.0-4.3); Hematocrit 31.7 % (30.3-42.9); Hemoglobin 10.4 gm/dl (10.1-14.3); Lymphocytes # (Auto) 2.2 K/mm3 (1.2-5.4); Mean Corpuscular HGB Conc 33 % (30-34); Mean Corpuscular Volume 72 fl (79-97); Monocytes # (Auto) 0.3 K/mm3 (0.0-0.8); Monocytes % (Auto) 4.6 % (0.0-7.3); Platelet Count 293 K/mm3 (140-440); Red Blood Count 4.38 M/mm3 (3.65-5.03)
[2021-11-23 12:38] LABS: Alanine Aminotransferase 13 units/L (7-56); Albumin 3.9 g/dL (3.9-5); Blood Urea Nitrogen 6 mg/dL (7-17); Calcium 9.2 mg/dL (8.4-10.2); Hemolysis Index 8
[2021-11-23 12:58] VITALS: BP 116/68
[2021-11-23 12:59] LABS: BUN/Creatinine Ratio 12
== END 2021-11-23 12:58 | disposition home or self-care (01) ==
LOC: ED 08:15
DX: N93.9 Abnormal uterine and vaginal bleeding, unspecified (principal)
CPT/HCPCS: 36415; 80053; 81025; 85025; 99283